=== PATIENT | female | born 1960 | race American Indian/Alaskan Native ===

== ENCOUNTER 2019-05-25 17:06 | Emergency (ER) | payer BC ==
--- NOTE | 2019-05-25 17:19 | Event Note ---
ED Screening Note Date of service: 05/25/19 Time: 17:17 ED Screening Note: 59 y o f was sent to Ed by dentist for elevated BP qith no hx This initial assessment/diagnostic orders/clinical plan/treatment(s) is/are subject to change based on patients health status, clinical progression and re-assessment by fellow clinical providers in the ED. Further treatment and workup at subsequent clinical providers discretion. Patient/guardian urged not to elope from the ED as their condition may be serious if not clinically assessed and managed. Initial orders include: acc eval
[2019-05-25 17:35] LABS: Basophils # (Auto) 0.1 K/mm3 (0.0-0.1); Basophils % (Auto) 0.9 % (0.0-1.8); Eosinophils # (Auto) 0.1 K/mm3 (0.0-0.4); Eosinophils % (Auto) 0.8 % (0.0-4.3); Hematocrit 41.8 % (30.3-42.9); Hemoglobin 13.8 gm/dl (10.1-14.3); Lymphocytes # (Auto) 2.6 K/mm3 (1.2-5.4); Lymphocytes % (Auto) 21.7 % (13.4-35.0); Mean Corpuscular HGB Conc 33 % (30-34); Mean Corpuscular Volume 84 fl (79-97); Monocytes # (Auto) 0.6 K/mm3 (0.0-0.8); Monocytes % (Auto) 5.1 % (0.0-7.3); Platelet Count 279 K/mm3 (140-440); Red Blood Count 4.98 M/mm3 (3.65-5.03); Red Cell Distribution Width 14.2 % (13.2-15.2)
[2019-05-25 18:00] LABS: Alanine Aminotransferase 9 units/L (7-56); Albumin 4.6 g/dL (3.9-5); BUN/Creatinine Ratio 14; Blood Urea Nitrogen 14 mg/dL (7-17); Calcium 9.6 mg/dL (8.4-10.2); Hemolysis Index 5
[2019-05-25] MEDS ORDERED: KETOROLAC 30 MG/1 ML INJ IM ONE (19:45)
[2019-05-25] MEDS ORDERED: ONDANSETRON 4 MG ODT TAB PO ONE (19:45)
[2019-05-25] MEDS ORDERED: HYDROcodone/ACETAMINOPHEN 5-325 MG TAB PO ONE (19:45)
[2019-05-25] MEDS ORDERED: CLINDAMYCIN 300 MG CAP PO ONE (19:45)
[2019-05-25] MEDS ORDERED: dexAMETHasone 20 MG/5 ML VIAL IM ONE (19:45)
--- NOTE | 2019-05-25 20:09 | Emergency Department Report ---
ED General Adult HPI - General Chief complaint: High BP Stated complaint: SENT BY DENTIST FOR HBP Time Seen by Provider: 05/25/19 17:16 Source: patient Mode of arrival: Ambulatory Limitations: No Limitations - History of Present Illness Initial comments: Patient is a 59-year-old -[place] female with a history of hypertension and noncompliance with medication, presents to the ED with complaint of acute onset persistent painful swollen right mandibular and maxillary jaw pain, swelling and severely painful premolar and molar toothaches for the last 3 days, worse in the last 12 hours. Patient states that he was evaluated at the dentist office about 8 hours ago for the same and the dentist could not perform any procedures because of worsening infection, and was ultimately discharged home on clindamycin and Tylenol No. 3 for pain. Patient states that she has not been able to pick out hand the prescriptions that were sent to the pharmacy because of worsening pain. Patient decided come to the ED for evaluation of her poorly controlled hypertension because of noncompliance to medications. Patient states that she used to take lisinopril over 1 year ago but stopped taking it because she develop persistent dry cough and has never been to any physician to change her prescriptions for her. Patient denies dizziness, fever, chills, sore throa t, headache, chest pain, shortness of breath, back pain, neck pain, change in vision, syncope or abdominal pain. MD Complaint: Dental pain; swollen jaw; elevated BP -: Sudden, days(s) (3) Location: mouth Radiation: non-radiation Severity scale (0 -10): 9 Quality: aching, sharp, constant Consistency: constant Improves with: none Worsens with: none Associated Symptoms: denies other symptoms. denies: confusion, chest pain, cough, diaphoresis, fever/chills, headaches, loss of appetite, malaise, nausea/vomiting, rash, seizure, shortness of breath, syncope, other Treatments Prior to Arrival: none - Related Data Previous Rx's Medication Instructions Recorded Last Taken Type Ketorolac [Toradol] 10 mg PO Q6H PRN #20 tablet 05/25/19 Unknown Rx amLODIPine [Norvasc] 10 mg PO DAILY #30 tab 05/25/19 Unknown Rx predniSONE [Deltasone] 40 mg PO QDAY #10 tab 05/25/19 Unknown Rx Allergies Allergy/AdvReac Type Severity Reaction Status Date / Time Penicillins AdvReac Anaphylaxis Verified 05/25/19 17:10 ED Review of Systems ROS: Stated complaint: SENT BY DENTIST FOR HBP Other details as noted in HPI Constitutional: denies: chills, fever Eyes: denies: eye pain, eye discharge, vision change ENT: dental pain, other (Jaw pain and swelling). denies: ear pain, throat pain Respiratory: denies: cough, shortness of breath, wheezing Cardiovascular: denies: chest pain, palpitations Endocrine: no symptoms reported Gastrointestinal: denies: abdominal pain, nausea, diarrhea Genitourinary: denies: urgency, dysuria, discharge Musculoskeletal: denies: back pain, joint swelling, arthralgia Skin: denies: rash, lesions Neurological: denies: headache, weakness, paresthesias Psychiatric: denies: anxiety, depression Hematological/Lymphatic: denies: easy bleeding, easy bruising ED Past Medical Hx - Past Medical History Hx Hypertension: Yes - Surgical History Additional Surgical History: HYSTERECTOMY - Social History Smoking Status: Never Smoker Substance Use Type: None - Medications Home Medications: Home Medications Medication Instructions Recorded Confirmed Last Taken Type Ketorolac [Toradol] 10 mg PO Q6H PRN #20 tablet 05/25/19 Unknown Rx amLODIPine [Norvasc] 10 mg PO DAILY #30 tab 05/25/19 Unknown Rx predniSONE [Deltasone] 40 mg PO QDAY #10 tab 05/25/19 Unknown Rx ED Physical Exam - General Limitations: No Limitations General appearance: alert, in no apparent distress - Head Head exam: Present: atraumatic, normocephalic, normal inspection - Eye Eye exam: Present: normal appearance, PERRL, EOMI Pupils: Present: normal accommodation - ENT ENT exam: Present: normal exam, mucous membranes moist, TM's normal bilaterally, normal external ear exam, other (swollen, right mandibular and maxillary jaws, premolar and molar dental caries and tenderness) - Neck Neck exam: Present: normal inspection, full ROM, lymphadenopathy - Respiratory Respiratory exam: Present: normal lung sounds bilaterally. Absent: respiratory distress, wheezes, chest wall tenderness, decreased breath sounds, prolonged expiratory - Cardiovascular Cardiovascular Exam: Present: regular rate, normal rhythm, normal heart sounds. Absent: systolic murmur, diastolic murmur, rubs, gallop - GI/Abdominal GI/Abdominal exam: Present: soft, normal bowel sounds. Absent: distended, hyperactive bowel sounds - Extremities Exam Extremities exam: Present: normal inspection, full ROM, normal capillary refill - Back Exam Back exam: Present: normal inspection, full ROM. Absent: tenderness, CVA tenderness (R), CVA tenderness (L), muscle spasm, paraspinal tenderness, vertebral tenderness - Neurological Exam Neurological exam: Present: alert, oriented X3, CN II-XII intact, normal gait, reflexes normal - Psychiatric Psychiatric exam: Present: normal affect, normal mood - Skin Skin exam: Present: warm, dry, intact, normal color. Absent: rash ED Course Vital Signs 05/25/19 05/25/19 05/25/19 17:13 19:21 19:25 Temperature 99.6 F Pulse Rate 79 86 Respiratory 18 17 17 Rate Blood Pressure 222/98 199/103 [Left] O2 Sat by Pulse 100 99 Oximetry - Reevaluation(s) Reevaluation #1: 05/25/19 20:11 This is a 59-year-old -[place] female with a history of poorly controlled hypertension who presented to the ED with worsening dental pain, swollen jaw and multiple diffuse dental caries with severe pain for 3 days. In the ED, patient is alert and oriented 3, hypertensive and appears to be in pain. Patient was treated for pain and also given initial oral antibiotics. Patient's blood pressure was rechecked and although it was still high the patien t was given a prescription, amlodipine 10 mg daily for her hypertension. Patient was discharged home and advised to follow-up with her dentist in 2-3 days for reevaluation and possible extraction of the abscessed teeth. Patient was also [facility] Patient was otherwise advised to return to the ED immediately if symptoms get worse. ED Medical Decision Making - Lab Data Result diagrams: 05/25/19 17:22 05/25/19 17:22 - Medical Decision Making This is a 59-year-old -[place] female with a history of poorly c ontrolled hypertension who presented to the ED with worsening dental pain, swollen jaw and multiple diffuse dental caries with severe pain for 3 days. In the ED, patient is alert and oriented 3, hypertensive and appears to be in pain. Patient was treated for pain and also given initial oral antibiotics. Patient's blood pressure was rechecked and although it was still high the patient was given a prescription, amlodipine 10 mg daily for her hypertension. Patient was discharged home and advised to follow-up with her dentist in 2-3 days for reevaluation and possible extraction of the abscessed teeth. Patient was also advised to follow-up at [facility] for her hypertension. Patient was otherwise advised to return to the ED immediately if symptoms get worse. - Differential Diagnosis dental abscess; acute gingivitis; Dental caries; Uncontrolled HTN Critical care attestation.: If time is entered above; I have spent that time in minutes in the direct care of this critically ill patient, excluding procedure time. ED Disposition Clinical Impression: Dental abscess, Uncontrolled stage 2 hypertension, Acute gingivitis, Dental caries Disposition: TO HOME OR SELFCARE Is pt being admited?: No Does the pt Need Aspirin: No Condition: Stable Instructions: Hypertension (ED), Gingivitis (ED), Dental Abscess (ED) Additional Instructions: Take medication with food, drink plenty of fluids and follow-up with your primary care physician in 7-10 days for reevaluation. Return to the ED immediately if symptoms get worse. Consider following up with your dentist in 3-5 days for reevaluation. Prescriptions: predniSONE [Deltasone] 40 mg PO QDAY #10 tab amLODIPine [Norvasc] 10 mg PO DAILY #30 tab Ketorolac [Toradol] 10 mg PO Q6H PRN #20 tablet PRN Reason: Pain Referrals: [facility] [Outside] - 3-5 Days Time of Disposition: 20:14
[2019-05-25 20:42] VITALS: BP 218/89
== END 2019-05-25 20:35 | disposition home or self-care (01) ==
LOC: ED 17:06
DX: K04.7 Periapical abscess without sinus (principal); I10 Essential (primary) hypertension; K02.9 Dental caries, unspecified; K05.00 Acute gingivitis, plaque induced; Z88.0 Allergy status to penicillin; Z79.899 Other long term (current) drug therapy; Z90.710 Acquired absence of both cervix and uterus
CPT/HCPCS: 36415; 80053; 85025; 96372; 99283; J1100; J1885; Q0162